=== PATIENT | female | born 2000 | race Hispanic/Latino ===

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

== ENCOUNTER 2021-10-02 16:20 | Emergency (ER) | payer OTHER | END 2021-10-02 18:47 | disposition left against medical advice (07) | LOC: ERS 16:20 | DX: Z53.21 Procedure and treatment not carried out due to patient leaving prior to being seen by health care provider (principal) ==

== ENCOUNTER 2021-10-03 00:34 | Emergency (ER) | payer OTHER, SELFPAY ==
[2021-10-03] MEDS ORDERED: Acetaminophen 500 MG TAB ONE (00:59)
[2021-10-03 01:37] LABS: BHCG - Serum Negative (NEGATIVE); Pregs Control Background? CLEAR/WHITE (CLR/WHITE); Pregs Control Bar Appear? YES (CONTROL BAR)
[2021-10-03 01:45] LABS: ALT (SGPT) 15 U/L (8-55); AST (SGOT) 21 U/L (5-30); Albumin 4.6 g/dL (3.5-5.0); Alkaline Phosphatase 86 U/L (40-100); Anion Gap 15 mmol/L (10-20); BUN (Urea Nitrogen) 16 mg/dL (8.4-21.0); Calc. Creatinine Clearance 0 mL/min (70-130); Calcium 9.6 mg/dL (7.8-10.44); Carbon Dioxide 23 mmol/L (22-29); Chloride 100 mmol/L (98-107); Glucose 110 mg/dL (70-105); Lipase 13 U/L (8-78); Potassium 3.9 mmol/L (3.5-5.1); Protein, Total 8.6 g/dL (6.0-8.3); Sodium 134 mmol/L (136-145)
[2021-10-03 01:48] LABS: Hemoglobin 14.8 g/dL (12.0-16.0); Mean Corpuscular HGB CONC 33.9 g/dL (32.0-36.0); Mean Corpuscular Hemoglobin 30.2 pg (25.0-35.0); Mean Platelet Volume 9.6 fL (7.4-10.4); Platelet Count 217 thou/uL (130-400); Red Blood Cell (RBC) Count 4.92 mill/uL (4.00-5.20); White Blood Cell (WBC) Count 14.4 thou/uL (4.8-10.8)
[2021-10-03 01:49] LABS: Bilirubin Negative (Negative); Blood, Urine Negative (Negative); Clarity Clear (Clear); Glucose, Urine (Dipstick) Normal (Negative); Ketone, Urine 40 mg/dL (Negative); Leukocyte Negative Leu/uL (Negative); Nitrite Negative (Negative); Protein, Urine (Dipstick) 10 mg/dL (Neg-Trace); Specific Gravity, Urine 1.029 (1.002-1.036); Urobilinogen Normal mg/dL (Less than 2)
[2021-10-03] MEDS ORDERED: Ondansetron PF 4 MG/2 ML Vial ONE (01:49)
[2021-10-03 02:02] LABS: Band 20 % (5-11); Lymphocytes 6 % (28-48); MDiff Complete? YES; Monocytes 2 % (0-4); Neutrophil 72 % (31-61)
== END 2021-10-03 03:08 | disposition home or self-care (01) ==
LOC: ERS 00:34
DX: R11.2 Nausea with vomiting, unspecified (principal); R50.9 Fever, unspecified; R10.9 Unspecified abdominal pain
CPT/HCPCS: 74177; 80053; 81003; 83690; 84703; 85025; J2405